=== PATIENT | male | born 1960 | race American Indian/Alaskan Native ===

== ENCOUNTER 2017-07-31 09:31 | Emergency (ER) | payer SELFPAY ==
[2017-07-31 09:37] VITALS: BMI 23.9
[2017-07-31 09:42] VITALS: RESP 18
[2017-07-31] MEDS ORDERED: TDAP Vaccine 0.5 mL Syr IM ONE (10:38)
--- NOTE | 2017-07-31 10:48 | ED PDOC ---
Arrival/HPI - General Chief Complaint: Abnormal Skin Integrity Time Seen by Provider: 07/31/17 10:28 Historian: Patient EM Caveat: Acuity of Condition - History of Present Illness Narrative History of Present Illness (Text): 07/31/17 10:43 Pt is a 57 year old male who presents to the ED with a nose laceration and possible fracture s/p elbow to the face while playing basketball this morning. Pt reports that he initially had pain and bleeding from the cut on the nose but then stopped within 15 minutes. Denies headache, change in vision, ear discharge , dysphasia, neck pain, LOC, or any other complaint at this time. Pt had right hip replacement in 2012. Tetanus vaccination unknown. 07/31/17 20:17 Time/Duration: Prior to Arrival Symptom Onset: Sudden Symptom Course: Unchanged, Improving Quality: Unable to Describe Severity Level: 2 Activities at Onset: Rest Context: Exertion Past Medical History - Provider Review Nursing Documentation Reviewed: Yes - Travel History Have you recently traveled outside [place] w/in the past 3 mons?: No - Infectious Disease Hx of Infectious Diseases: None - Tetanus Immunization Tetanus Immunization: Unknown - Cardiac Hx Cardiac Disorders: No - Pulmonary Hx Respiratory Disorders: No - Psychiatric Hx Psychophysiologic Disorder: No Hx Substance Use: No - Surgical History Hx Joint Replacement: Yes (right hip 2012) - Anesthesia Hx Anesthesia: No Hx Anesthesia Reactions: No Hx Malignant Hyperthermia: No Family/Social History - Physician Review Nursing Documentation Reviewed: Yes Family/Social History: Unknown Family HX Smoking Status: Current Some Days Smoker Hx Alcohol Use: No Hx Substance Use: No Allergies/Home Meds Allergies/Adverse Reactions: Allergies No Known Allergies Allergy (Verified 07/31/17 09:37) Review of Systems - Physician Review All systems were reviewed & negative as marked: Yes - Review of Systems Constitutional: Normal Eyes: Normal ENT: Normal, Other (swelling of nose) Respiratory: Normal Cardiovascular: Normal Gastrointestinal: Normal Genitourinary Male: Normal Musculoskeletal: Normal Skin: Normal, Laceration (bridge of nose; ) Neurological: Normal Endocrine: Normal Hemo/Lymphatic: Normal Psychiatric: Normal Physical Exam Vital Signs Reviewed: Yes Vital Signs Temp Pulse Resp BP Pulse Ox 07/31/17 13:30 98 F 79 18 138/76 98 07/31/17 09:38 98.4 F 78 18 145/97 H 99 07/31/17 09:31 98.4 F 78 18 145/97 H 99 Temperature: Afebrile Blood Pressure: Normal Pulse: Regular Respiratory Rate: Normal Appearance: Positive for: Well-Appearing, Non-Toxic, Comfortable Pain Distress: None Mental Status: Positive for: Alert and Oriented X 3 - Systems Exam Head: Present: Atraumatic, Normocephalic Pupils: Present: PERRL Extroacular Muscles: Present: EOMI Conjunctiva: Present: Injected (bilateral) Mouth: Present: Moist Mucous Membranes Pharnyx: Present: Normal Nose (External): Present: Laceration (below bridge of nose on right side; 1cm L x 5mm D) Nose (Internal): Present: No Active Bleeding, Moist, Edematous (perinasal) Neck: Present: Normal Range of Motion Respiratory/Chest: Present: Clear to Auscultation, Good Air Exchange. No: Respiratory Distress, Accessory Muscle Use Cardiovascular: Present: Regular Rate and Rhythm, Normal S1, S2. No: Murmurs Abdomen: Present: Normal Bowel Sounds. No: Tenderness, Distention, Peritoneal Signs Back: Present: Normal Inspection Upper Extremity: Present: Normal Inspection. No: Cyanosis, Edema Lower Extremity: Present: Normal Inspection. No: Edema Neurological: Present: GCS=15, CN II-XII Intact, Speech Normal Skin: Present: Warm, Dry, Normal Color. No: Rashes Psychiatric: Present: Alert, Oriented x 3, Normal Insight, Normal Concentration Medical Decision Making ED Course and Treatment: 07/31/17 10:48 Impression Pt is a 57 year old male who presents to the ED with a nose laceration and possible fracture s/p elbow to the face while playing basketball this morning. On PE, lacerattion below bridge of nose on right side; 1cm L x 5mm D; mild tenderness over the bridge, hephema bilateral Plan ENT consulted; Dr. Wild CT maxillo facial Steristrip for laceration keflex 500 mg po Progress Note CT reveals bilateral nasal bone fracture with displacement Spoke with ENT Dr. Woodard for Dr. Wild; will see pt in office tomorrow; proceed with either suture or steri strip and PO abx, pain meds Pt sent home on Augmentin 875/125 mg x3 days Discussed homecare and f/u with ENT esther - RAD Interpretation Narrative RAD Interpretations (Text): 07/31/17 12:56 PROCEDURE: CT MAXILLOFACIAL BONES WITHOUT CONTRAST HISTORY: injury COMPARISON: None TECHNIQUE: Contiguous axial CT images of the maxillofacial bones were obtained. Coronal and sagittal reformats were generated. Radiation dose: Total exam DLP = 750.02 mGy-cm. This CT exam was performed using one or more of the following dose reduction techniques: Automated exposure control, adjustment of the mA and/or kV according to patient size, and/or use of iterative reconstruction technique. FINDINGS: NASAL BONES: There are multiple small slightly displaced fractures in the nasal bone. ORBITS: Unremarkable. PARANASAL SINUSES/ MASTOIDS: Clear. MAXILLA: Unremarkable. MANDIBLE/ TEMPOROMANDIBULAR JOINTS: Unremarkable. SKULL BASE: Unremarkable. TEMPORAL BONES: Middle ears and mastoid grossly unremarkable. OTHER FINDINGS: Periodontal lucency are noted P IMPRESSION: Small mildly displaced fractures at the nasal bones bilaterally. No other acute fracture is seen. Radiology Orders: 07/31/17 10:42 MAXILLOFACIAL W/O CONTRAST [CT] Stat - Medication Orders Current Medication Orders: Discontinued Medications Cephalexin Monohydrate (Keflex) 500 mg PO STAT STA PRN Reason: Protocol Stop: 07/31/17 10:40 Last Admin: 07/31/17 11:20 Dose: 500 mg Tetanus/Reduced Diphtheria/Acell Pertussis (Boostrix Vaccine Inj) 0.5 ml IM .ONCE ONE Stop: 07/31/17 10:39 Last Admin: 07/31/17 11:20 Dose: 0.5 ml MAR Immunization Data Document 07/31/17 11:20 GMI (Rec: 07/31/17 11:20 [facility] [id number] Immunization Data Vaccine Information Sheet Given Yes Vaccine Information Sheet Given Date 07/31/17 Immunization Registry Document 07/31/17 11:20 GMI (Rec: 07/31/17 11:20 GMI [facility] [id number] Immunization Registry Consent Date 03/26/17 - Procedure PROCEDURE NOTE (Text): 07/31/17 19:16 PROCEDURE: LACERATION REPAIR Performed by the emergency provider Location: nose Length: 1 cm Description: clean wound edges","no foreign bodies" Distal CMS: ~Normal.~ No deficits.~ Neurovascularly intact. Anesthesia: Lidocaine 1% 4cc infiltrated the wound edges Preparation: The wound was cleaned with NS. The area was prepped and draped in the usual sterile fashion. Exploration: ~ The wound was explored and found to have no foreign bodies. Procedure: The wound was closed with 6.0 nylon.~ There was adequate approximation.~ In total, 3 sutures were used. Post-Procedure: ~Good closure and hemostasis.~ The patient tolerated the procedure well and there were no complications.~ CSM remains intact.~ Post procedure dressing applied. 07/31/17 20:13 Disposition/Present on Arrival - Present on Arrival Any Indicators Present on Arrival: Yes History of DVT/PE: No History of Uncontrolled Diabetes: No Urinary Catheter: No History of Decub. Ulcer: No History Surgical Site Infection Following: None - Disposition Have Diagnosis and Disposition been Completed?: Yes Diagnosis: Open fracture nasal bone, Laceration Disposition: HOME/ ROUTINE Disposition Time: 13:46 Patient Plan: Discharge Condition: STABLE Discharge Instructions (ExitCare): Nose Fracture (DC), Skull and Facial Fractures (DC) Additional Instructions: Dear Bereket, Please follow up with the ENT specialist in the next 12-24 hrs we have recommended for your care. You have been given antibiotics for the next 3 days to prevent infection. If you experience any excessive bleeding in the nex5t 12 hrs, return to the Emergency department for evaluation. The specialist you bwill be seeing is Dr. Wild in [place], [place]. All the best in your recovery Prescriptions: Amoxicillin/Clavulanate [Augmentin 875 MG-125 MG] 1 tab PO Q12 3 Days #6 tab Referrals: PCP,EDELMIRA [Primary Care Provider] - Follow up with primary Hansel Wild DO [Staff Provider] - Follow up with primary Forms: [employer] ([place]ish)
--- NOTE | 2017-07-31 12:19 | CT ---
PROCEDURE: CT MAXILLOFACIAL BONES WITHOUT CONTRAST HISTORY: injury COMPARISON: None TECHNIQUE: Contiguous axial CT images of the maxillofacial bones were obtained. Coronal and sagittal reformats were generated. Radiation dose: Total exam DLP = 750.02 mGy-cm. This CT exam was performed using one or more of the following dose reduction techniques: Automated exposure control, adjustment of the mA and/or kV according to patient size, and/or use of iterative reconstruction technique. FINDINGS: NASAL BONES: There are multiple small slightly displaced fractures in the nasal bone. ORBITS: Unremarkable. PARANASAL SINUSES/ MASTOIDS: Clear. MAXILLA: Unremarkable. MANDIBLE/ TEMPOROMANDIBULAR JOINTS: Unremarkable. SKULL BASE: Unremarkable. TEMPORAL BONES: Middle ears and mastoid grossly unremarkable. OTHER FINDINGS: Periodontal lucency are noted P IMPRESSION: Small mildly displaced fractures at the nasal bones bilaterally. No other acute fracture is seen.
[2017-07-31 14:24] VITALS: BP 138/76; PULSE 79; TEMP 98; O2SAT 98
== END 2017-07-31 13:45 | disposition home or self-care (01) ==
LOC: ED 09:31
DX: S01.21XA Laceration without foreign body of nose, initial encounter (principal); S02.2XXB Fracture of nasal bones, initial encounter for open fracture; W50.0XXA Accidental hit or strike by another person, initial encounter; Y93.67 Activity, basketball; F17.200 Nicotine dependence, unspecified, uncomplicated; Z23 Encounter for immunization